=== PATIENT | female | born 2000 ===

== ENCOUNTER 2022-10-26 11:13 | Inpatient (IN) | payer OTHER ==
[~2022-10-26] VITALS: Ht 172.7 cm; Wt 67.1 kg
[2022-10-26] MEDS ORDERED: MAGNESIUM HYDROXIDE SUSPENSION 30 ML UDCUP PO PRN (13:00)
[2022-10-26] MEDS ORDERED: SODIUM CHLORIDE 0.9% 1,000 ML IV ONE (13:00)
[2022-10-26] MEDS ORDERED: ACETAMINOPHEN 325 MG TABLET PO PRN (13:00)
[2022-10-26] MEDS ORDERED: ZOLPIDEM TARTRATE 5 MG TABLET PO PRN (13:00)
[2022-10-26 13:34] LABS: COVID AG,FIA SOURCE NASAL SWAB
[2022-10-26 13:38] LABS: BASOPHILS % (AUTO) 0.5 % (0.0-2.0); EOSINOPHILS % (AUTO) 0 % (1.0-6.0); HEMATOCRIT 42.8 % (36-46); HEMOGLOBIN 14.1 g/dL (12.0-16.0); LYMPHOCYTES % (AUTO) 24.4 % (22.0-44.0); MEAN CORPUSCULAR HEMOGLOBIN 29.4 pg (26.0-34.0); MEAN CORPUSCULAR HGB CONC 32.8 G/dL (31.0-37.0); MEAN CORPUSCULAR VOLUME 90 fL (80-100); MONOCYTES # (AUTO) 0.4 K/uL (0.1-1.0); MONOCYTES % (AUTO) 5.1 % (2.0-9.0); NEUTROPHILS # (AUTO) 5.8 K/uL (1.8-7.7); PLATELET COUNT (AUTO) 255 K/uL (150-450); RED BLOOD CELL COUNT(AUTO) 4.77 MIL/uL (4.00-5.20); RED CELL DISTRIBUTION WIDTH 14.3 % (11.5-14.5)
[2022-10-26 13:53] LABS: BILIRUBIN,TOTAL 1.2 mg/dL (0.1-1.0); CALCIUM, TOTAL 9.3 mg/dL (8.8-10.5); CREATININE 1.16 mg/dL (0.60-1.30); TOTAL PROTEIN, SERUM 9.4 g/dL (6.4-8.2)
[2022-10-26 14:15] LABS: APPEARANCE,URINE TURBID (CLEAR); BILIRUBIN,URINE NEGATIVE (NEGATIVE); GLUCOSE, URINE (UA) NEGATIVE (NEGATIVE); KETONES,URINE 40-60 mg/dL (NEGATIVE); LEUKOCYTE ESTERASE ,URINE NEGATIVE (NEGATIVE); NITRATE,URINE NEGATIVE (NEGATIVE); OCCULT BLOOD,URINE NEGATIVE (NEGATIVE); PH,URINE 8.5 (5.0-8.0); PROTEIN,URINE 100-200,SEE CONFIRM mg/dL (NEGATIVE); SPECIFIC GRAVITIY, URINE 1.031 (1.003-1.030); UROBILINOGEN,URINE <=1.0 mg/dL (<=1.0)
[2022-10-26 14:17] LABS: POTASSIUM 2.9 mmol/L (3.5-5.1)
[2022-10-26 14:23] LABS: AMPHET/METH SCREEN,URINE POSITIVE (NEGATIVE); BARBITURATE SCREEN, URINE NEGATIVE (NEGATIVE); BENZODIAZEPINES SCREEN,URINE NEGATIVE (NEGATIVE); CANNABINOID SCREEN,URINE NEGATIVE (NEGATIVE); COCAINE SCREEN,URINE NEGATIVE (NEGATIVE); METHADONE SCREEN, URINE NEGATIVE (NEGATIVE); OPIATE SCREEN,URINE NEGATIVE (NEGATIVE); PHENCYCLIDINE SCREEN,URINE NEGATIVE (NEGATIVE); SULFOSALICYLIC ACID,URINE 2+ (Negative)
[2022-10-26] MEDS ORDERED: POTASSIUM CHLORIDE 20 MEQ ER TABLET PO ONE (14:30)
[2022-10-26 14:51] LABS: BACTERIA,URINE Moderate /HPF (None Seen); RBC,URINE None Seen /HPF (0-2); SQUAMOUS EPITHELIAL CELL,UR Few /LPF (None Seen); WBC,URINE None Seen /HPF (0-5)
[2022-10-26 14:52] LABS: AMORPHOUS SEDIMENT,UR Many /LPF (None Seen); TRIPLE PHOSPHATE CRYSTAL,UR Many /LPF (None Seen)
[2022-10-26 16:45] VITALS: BP 131/75
[2022-10-26 19:38] VITALS: BP 129/87
[2022-10-26] MEDS: FAMOTIDINE 20 MG TABLET PO SCH (20:08)
[2022-10-26 23:10] VITALS: BP 130/75
[2022-10-27] MEDS: ONDANSETRON HCL 4 MG/2 ML VIAL IVP PRN ×2 (02:26→08:38)
[2022-10-27 02:44] VITALS: BP 134/76
[2022-10-27 07:41] LABS: ANION GAP 10 mmol/L (8-16); CALCIUM, TOTAL 8.8 mg/dL (8.8-10.5); CARBON DIOXIDE 27 mmol/L (22-29); CHLORIDE 106 mmol/L (98-107); CREATININE 0.95 mg/dL (0.60-1.30); GLOMERULAR FILTR. RATE CALC > 60 mL/min (>60); GLUCOSE,RANDOM 104 mg/dL (70-110); POTASSIUM 3.6 mmol/L (3.5-5.1); SODIUM SERUM 143 mmol/L (136-145); UREA NITROGEN, BLOOD 17 mg/dL (7-18)
[2022-10-27 08:30] VITALS: BP 126/85
[2022-10-27] MEDS: FAMOTIDINE 20 MG TABLET PO SCH ×2 (08:38→20:11)
[2022-10-27 12:06] VITALS: BP 131/77
[2022-10-27] MEDS: SODIUM CHLORIDE 0.9% 1,000 ML IV SCH (14:18)
[2022-10-27] MEDS: LOPERAMIDE HCL 2 MG CAPSULE PO PRN (14:18)
[2022-10-27 16:05] VITALS: BP 131/77
[2022-10-27] MEDS: LORazepam 2 MG/ML VIAL IVP PRN ×2 (16:28→23:22)
[2022-10-27 20:09] VITALS: BP 130/72
[2022-10-28] MEDS: SODIUM CHLORIDE 0.9% 1,000 ML IV SCH ×2 (02:55→16:47)
[2022-10-28 05:57] VITALS: BP 131/89
[2022-10-28] MEDS: LORazepam 2 MG/ML VIAL IVP PRN ×3 (06:06→19:53)
[2022-10-28 08:27] VITALS: BP 144/72
[2022-10-28] MEDS: FAMOTIDINE 20 MG TABLET PO SCH ×2 (09:48→19:53)
[2022-10-28 15:21] VITALS: BP 138/66
[2022-10-28 19:18] VITALS: BP 115/62
[2022-10-28] MEDS: LOPERAMIDE HCL 2 MG CAPSULE PO PRN (19:57)
[2022-10-29] MEDS: LORazepam 2 MG/ML VIAL IVP PRN ×3 (04:18→20:44)
[2022-10-29] MEDS: SODIUM CHLORIDE 0.9% 1,000 ML IV SCH (04:19)
[2022-10-29 04:45] VITALS: BP 125/75
[2022-10-29] MEDS: FAMOTIDINE 20 MG TABLET PO SCH ×2 (09:23→20:44)
[2022-10-29 09:38] VITALS: BP 124/76
[2022-10-29] MEDS: CefTRIAXone 1 GM/DEXTROSE 50 ML IV SCH (10:44)
[2022-10-29 20:20] VITALS: BP 111/65
[2022-10-30] MEDS: CefTRIAXone 1 GM/DEXTROSE 50 ML IV SCH (08:20)
[2022-10-30] MEDS: FAMOTIDINE 20 MG TABLET PO SCH ×2 (08:20→20:22)
[2022-10-30 09:30] VITALS: BP 128/81
[2022-10-30 15:42] VITALS: BP 99/61
[2022-10-30 19:55] VITALS: BP 116/70
[2022-10-30] MEDS: LOPERAMIDE HCL 2 MG CAPSULE PO PRN (20:24)
[2022-10-31 04:25] VITALS: BP 129/69
[2022-10-31 07:38] VITALS: BP 99/65
[2022-10-31] MEDS: FAMOTIDINE 20 MG TABLET PO SCH (08:03)
[2022-10-31] MEDS: CefTRIAXone 1 GM/DEXTROSE 50 ML IV SCH (08:03)
[2022-10-31] MEDS ORDERED: CIPR250T6 PO (09:40)
[2022-10-31] MEDS ORDERED: ACET-2247 PO (09:41)
[2022-10-31] MEDS ORDERED: MAGN-169 PO (09:41)
[2022-10-31] MEDS ORDERED: CIPROFLOXACIN HCL 250 MG TABLET PO SCH (21:00)
== END 2022-10-31 11:50 | DRG 690 ==
LOC: EMS 11:25 → 6S 15:27
PROVIDERS: ADMIT Internal Medicine; ATTEND Internal Medicine
DX: N39.0 Urinary tract infection, site not specified (principal); F15.23 Other stimulant dependence with withdrawal; F11.23 Opioid dependence with withdrawal; E87.6 Hypokalemia; Z20.822 Contact with and (suspected) exposure to COVID-19; Z87.891 Personal history of nicotine dependence; Z79.899 Other long term (current) drug therapy
CPT/HCPCS: 80048; 80053; 80307; 81001; 81002; 84703; 85025; 87086; 87186; 99285; J0696; J2060; J2405; J7030